=== PATIENT | female | born 1960 | race Caucasian/White ===

== ENCOUNTER 2024-05-20 12:37 | Observation (INO) | payer OTHER ==
[2024-05-20] VITALS (7 sets, daily range): BP systolic 109–151; BP diastolic 57–67; PULSE 63–79; RESP 18–20; TEMP 97.6–98.5; O2SAT 96–99
[~2024-05-20] VITALS: Ht 157.5 cm; Wt 69.9 kg
[2024-05-20] MEDS ORDERED: ONDANSETRON HCL INJ 2MG/ML 2ML 2 MG/ML VIAL IV PRN (14:45)
[2024-05-20] MEDS ORDERED: SODIUM CHLORIDE FLUSH 10 ML SYR INJ PRN (14:45)
[2024-05-20] MEDS: MAGNESIUM SULFATE 2GM/50ML 50 ML IV SCH (15:35)
[2024-05-20] MEDS ORDERED: CYCLOBENZAPRINE10 MG PO (16:31)
[2024-05-20] MEDS ORDERED: ATORVASTATIN CA40 MG PO (16:31)
[2024-05-20] MEDS ORDERED: METFORMIN HCL500 M1 PO (16:31)
[2024-05-20] MEDS ORDERED: MAG-OXIDE400 MG PO (16:31)
[2024-05-20] MEDS ORDERED: FLUTICASONE-SA1 EAC4 (16:31)
[2024-05-20] MEDS ORDERED: FLUTICASONE PRO16 GM INH (16:31)
[2024-05-20] MEDS ORDERED: METOPROLOL SUCC25 MG PO (16:31)
[2024-05-20] MEDS ORDERED: TRELEGY ELLIPT1 EACH INH (16:31)
[2024-05-20] MEDS ORDERED: AMLODIPINE BESY10 MG PO (16:31)
[2024-05-20] MEDS ORDERED: LEVOTHYROXINE25 MCG PO (16:31)
[2024-05-20] MEDS ORDERED: OMEPRAZOLE40 MG PO (16:31)
[2024-05-20] MEDS ORDERED: ALPRAZOLAM0.25 MG PO (16:31)
[2024-05-20] MEDS: AMLODIPINE BESYLATE 10 MG TAB PO SCH (17:45)
[2024-05-20] MEDS: MAGNESIUM SULFATE 2GM/50ML IV ONE (17:57)
[2024-05-20] MEDS: ACETAMINOPHEN 325 MG TAB PO PRN (17:58)
[2024-05-20] MEDS: METOPROLOL SUCCINATE 25 MG TAB XL PO SCH ×2 (18:00→18:02)
[2024-05-20] MEDS ORDERED: METOPROLOL SUCCINATE 25 MG TAB XL PO SCH (18:00)
[2024-05-20] MEDS: SODIUM CHLORIDE 0.9% 250ML 250 ML ONE (18:01)
[2024-05-20] MEDS ORDERED: IOPAMIDOL 370 MG/ML 100 ML INFUS..BTL INJ ONE (19:24)
[2024-05-20] MEDS ORDERED: MAGNESIUM SULFATE 2GM/50ML 50 ML IV ONE (19:30)
[2024-05-20] MEDS: ALPRAZOLAM 0.25 MG TAB PO SCH (20:26)
[2024-05-20] MEDS: LEVOTHYROXINE SODIUM 25 MCG TABLET PO SCH (20:26)
[2024-05-20] MEDS: ATORVASTATIN 40 MG TAB PO SCH (20:26)
[2024-05-21] VITALS (8 sets, daily range): BP systolic 106–147; BP diastolic 57–71; PULSE 57–78; RESP 17–18; TEMP 97.4–98.2; O2SAT 97–100
[2024-05-21] MEDS: PANTOPRAZOLE SOD 40 MG TABEC PO SCH (05:34)
[2024-05-21 05:41] LABS: BASOPHILS # (AUTO) 0.1 (0.0-0.1); BASOPHILS % 1.3 % (0.0-1.0); EOSINOPHILS # (AUTO) 0.2 (0.0-0.4); EOSINOPHILS % 3.1 % (0.0-6.0); HEMATOCRIT 35.2 % (34.2-44.1); LYMPHOCYTES # (AUTO) 1.4 (1.0-3.2); LYMPHOCYTES % 29.9 % (18.0-39.1); MEAN CORPUSCULAR HEMOGLOBIN 27.8 pg (28-32); MEAN CORPUSCULAR HGB CONC 31.3 g/dL (31-35); MEAN CORPUSCULAR VOLUME 89.1 fL (81-99); MONOCYTES # (AUTO) 0.5 (0.2-0.8); MONOCYTES % 9.6 % (4.4-11.3); NEUTROPHILS # (AUTO) 2.7 (2.1-6.9); NEUTROPHILS % 55.5 % (38.7-80.0); PLATELET COUNT 250 x10e3/uL (140-360); RED BLOOD COUNT 3.95 x10e6/uL (3.6-5.1); RED CELL DISTRIBUTION WIDTH 13.7 % (11.7-14.4); WHITE BLOOD COUNT 4.78 x10e3/uL (4.8-10.8)
[2024-05-21 06:18] LABS: ALBUMIN 3.5 g/dL (3.5-5.0); ALBUMIN/GLOBULIN RATIO 0.9 (0.8-2.0); ANION GAP 13.8 mmol/L (8-16); BILIRUBIN,TOTAL 0.4 mg/dL (0.2-1.2); CALCIUM 9.5 mg/dL (8.4-10.2); CREATININE, SERUM 0.83 mg/dL (0.57-1.11); MAGNESIUM 1.8 MG/DL (1.3-2.1); PHOSPHORUS 4.7 MG/DL (2.3-4.7); POTASSIUM 3.8 mmol/L (3.5-5.1); TOTAL PROTEIN 7.5 g/dL (6.5-8.1)
[2024-05-21 06:28] LABS: THYROID STIMULATING HORMONE 1.819 uIU/mL (0.350-4.940)
[2024-05-21] MEDS: METOPROLOL SUCCINATE 25 MG TAB XL PO SCH (08:58)
[2024-05-21] MEDS: CYCLOBENZAPRINE HCL 10 MG TAB PO PRN (19:08)
[2024-05-21] MEDS: MAGNESIUM OXIDE 400 MG TAB PO SCH (21:11)
[2024-05-22 00:20] VITALS: BP 93/73; PULSE 62; RESP 20; TEMP 98; O2SAT 99
[2024-05-22 06:34] LABS: ANION GAP 13.8 mmol/L (8-16); CALCIUM 9.4 mg/dL (8.4-10.2); CREATININE, SERUM 0.83 mg/dL (0.57-1.11); POTASSIUM 3.8 mmol/L (3.5-5.1)
[2024-05-22 07:45] VITALS: BP 127/62; PULSE 71; RESP 19; TEMP 97.9; O2SAT 99
[2024-05-22] MEDS ORDERED: MAGNESIUM SULFATE 2GM/50ML IV ONE (08:00)
[2024-05-22 08:39] VITALS: BP 129/94; PULSE 84; RESP 19; TEMP 98.1; O2SAT 99
[2024-05-22] MEDS ORDERED: MAGNESIUM OXIDE 400 MG TAB PO SCH (09:00)
[2024-05-22] MEDS: MAGNESIUM SULFATE 2GM/50ML 50 ML IV ONE (09:42)
[2024-05-22 12:32] VITALS: BP 116/62; PULSE 66; RESP 19; TEMP 98.1; O2SAT 100
[2024-05-22 16:38] VITALS: BP 126/87; PULSE 85; RESP 20; TEMP 98.3; O2SAT 99
== END 2024-05-22 15:50 | disposition home or self-care (01) ==
LOC: FSED 13:14 → ERHOLD 14:48 → MED/SURG 16:02
PROVIDERS: ADMIT Internal Medicine; ATTEND Internal Medicine
DX: E83.42 Hypomagnesemia (principal); D50.9 Iron deficiency anemia, unspecified; K29.70 Gastritis, unspecified, without bleeding; J43.2 Centrilobular emphysema; R00.2 Palpitations; K76.0 Fatty (change of) liver, not elsewhere classified; R94.31 Abnormal electrocardiogram [ECG] [EKG]; I10 Essential (primary) hypertension; E78.00 Pure hypercholesterolemia, unspecified; E11.9 Type 2 diabetes mellitus without complications; Z79.84 Long term (current) use of oral hypoglycemic drugs; E03.9 Hypothyroidism, unspecified; Z87.891 Personal history of nicotine dependence; Z85.118 Personal history of other malignant neoplasm of bronchus and lung; Z90.2 Acquired absence of lung [part of]; Z79.899 Other long term (current) drug therapy
CPT/HCPCS: 36415 ×3; 71260; 74177; 80048; 80053 ×2; 81003; 82948; 83036; 83735 ×3; 83970; 84100; 84443; 84484; 85025 ×2; 93005; 99284; G0378 ×3; J3475 ×2; J7050; Q9967; S0164